=== PATIENT | male | born 1940 | race Caucasian/White ===

== ENCOUNTER 2018-10-19 11:52 | Emergency (ER) | payer OTHER ==
[~2018-10-19] VITALS: Ht 172.7 cm; Wt 74.8 kg
[~2018-10-19 11:52] MED LIST: ACETAMINOPHEN325 M1 PO; ALBUTEROL2.5 MG/31 INH; ASPIR 8181 MG PO; ASPIRIN EC81 M1 PO; ASPIRIN81 M2 PO; AVELOX400 MG PO; BACTRIM DS TAB1 EACH PO; BENAZEPRIL HCL40 MG PO; BISACODYL SUPP10 MG RECTAL; CHILDREN'S100 MG/58 PO; DEEP SEA NASAL44 M1 NS; DEPAKENE250 MG PO; DEPAKOTE500 MG; DEPAKOTE500 MG PO; DILTIAZEM ER120 M1; DIPHENHIST25 MG PO; DIPHENOXYLATE/A1 TA1 PO; DOCUSATE SODIU100 MG PO; FLOMAX0.4 MG PO; HYDROCHLOROTHIA25 M1 PO; HYDROCODON-ACE1 EAC7 PO; LEXAPRO 10 MG T10 M2 PO; LISINOPRIL40 MG PO; LORAZEPAM 2MG TA2 M1 PO; NORCO 5-325 TA1 EACH PO; NUEDEXTA 20-101 EACH PO; PATADAY2.5 ML OP; PATANOL; PROTONIX40 M1 PO; QUETIAPINE FUM100 MG PO; RANITIDINE 150150 M1 PO; SALINE MIST44 ML NASAL; SEROQUEL 50 MG50 MG PO; SEROQUEL XR150 MG; SEROQUEL200 MG PO; TAMSULOSIN HCL0.4 M1 PO; UNICOMPLEX M TA1 TA1 PO; VALPROIC A250 MG/51 PO; XANAX1 MG PO; XARELTO20 MG PO; ZANTAC 150MG T150 MG PO
[2018-10-19 14:07] VITALS: BP 130/74
== END 2018-10-19 13:55 | disposition home or self-care (01) ==
LOC: ER 11:52
DX: S60.222A Contusion of left hand, initial encounter (principal); F20.9 Schizophrenia, unspecified; I10 Essential (primary) hypertension; K21.9 Gastro-esophageal reflux disease without esophagitis; X58.XXXA Exposure to other specified factors, initial encounter; Y92.89 Other specified places as the place of occurrence of the external cause; Y93.89 Activity, other specified; Y99.8 Other external cause status

== ENCOUNTER 2019-11-07 19:57 | Inpatient (IN) | payer OTHER ==
[~2019-11-07] VITALS: Ht 172.7 cm; Wt 84.6 kg
[2019-11-07 20:00] VITALS: BP 136/70
[2019-11-07 20:20] LABS: ABSOLUTE NEUTROPHILS 12.4 thou/uL (1.4-8.2); BASOPHILS 0.1 % (0.0-2.0); EOSINOPHILS 0.7 % (0.0-3.0); HEMATOCRIT 44.4 % (42.0-52.0); HEMOGLOBIN 14.7 gm/dL (14.0-18.0); LYMPHOCYTES 12.2 % (24.0-44.0); MCH 30.5 pg (26.0-34.0); MCHC 33.2 g/dL (28.0-37.0); MCV 91.9 fL (80.0-100.0); MONOCYTES 6.9 % (1.0-8.0); PLATELET COUNT 245 thou/uL (150-400); POLYS 80.1 % (36.0-66.0); RBC 4.83 mil/uL (4.50-6.00); RDW 13.8 % (10.5-14.5); WBC 15.5 thou/uL (4.0-11.0)
[2019-11-07 20:36] LABS: ANION GAP 7 mmol/L (7-16); BUN 17 mg/dL (7-18); CALCIUM 8.9 mg/dL (8.5-10.1); CHLORIDE 99 mmol/L (98-107); CO2 29 mmol/L (21-32); CREATININE 0.8 mg/dL (0.7-1.3); GLUCOSE 205 mg/dL (74-106); POTASSIUM 3.8 mmol/L (3.5-5.1); SODIUM 135 mmol/L (136-145)
[2019-11-07 20:44] LABS: ALBUMIN 3.3 g/dL (3.4-5.0); SGOT 21 U/L (15-37); SGPT 17 U/L (30-65); TOTAL BILIRUBIN 0.3 mg/dL (0.2-1.0); TOTAL PROTEIN 7.6 g/dL (6.4-8.2); TROPONIN-I <0.06 ng/mL (<0.06)
--- NOTE | 2019-11-07 20:55 | NUR ---
PA called at this time to get consent for patient treamtment
--- NOTE | 2019-11-07 21:27 | NUR ---
Consent received from Calvin Rodriguez from PA's office
[2019-11-07] MEDS ORDERED: QUETIAPINE FUMA50 MG PO (22:06)
[2019-11-07] MEDS ORDERED: VALPROIC A250 MG/52 PO (22:06)
[2019-11-07] MEDS ORDERED: ALBUTEROL2.5 MG/31 INH (22:19)
[2019-11-07] MEDS ORDERED: ALPRAZOLAM ER1 MG PO (22:19)
--- NOTE | 2019-11-07 23:55 | NUR ---
Unable to hang vancomycin due to lack of IV pumps in department. Will administer as soon as possible.
[2019-11-08] VITALS (8 sets, daily range): BP systolic 147–170; BP diastolic 81–97
[2019-11-08] MEDS ORDERED: FLOMAX0.4 MG PO (02:21)
[2019-11-08] MEDS ORDERED: DEEP SEA NASAL44 M1 NASAL (02:29)
[2019-11-08] MEDS ORDERED: QUETIAPINE FUM300 MG PO (03:16)
[2019-11-08 03:34] LABS: HEMATOCRIT 41.1 % (42.0-52.0); HEMOGLOBIN 13.5 gm/dL (14.0-18.0); MCH 30.1 pg (26.0-34.0); MCV 91.3 fL (80.0-100.0); RBC 4.5 mil/uL (4.50-6.00); RDW 13.3 % (10.5-14.5); WBC 11.1 thou/uL (4.0-11.0)
[2019-11-08 03:38] LABS: CALCIUM 8.5 mg/dL (8.5-10.1); CREATININE 0.7 mg/dL (0.7-1.3); POTASSIUM 3.3 mmol/L (3.5-5.1)
--- NOTE | 2019-11-08 06:08 | NUR ---
PT ADMITTED AT 00:58 THIS AM TO 355 FROM ER. ALERT BUT NONVERBAL. 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 INCOMPREHENSIBLE NOISES MADE AT TIMES. HRR SR 1AVB WITH BBB ON TELEMETRY. 2LNC ON . NONPRODUCTIVE COUGH NOTED. REVIEWED PT'S HOME MEDS WITH GABRIEL PADRON CLOTH STOCK SORTER OF THE RESIDENTIAL. NEAL NOTIFIED ALL MEDS WERE REVIEWED AND READY FOR HER TO LOOK AT AND INITIATE. BP MODERATELY ELEVATED. IV ABX STARTED ORDERED. CONSULT FOR ID CALLED TO ANSWERING SERVICE.
--- NOTE | 2019-11-08 07:45 | EKG ---
[facility] [place] [address] ELECTROCARDIOGRAM REPORT Name: FEROZ RUSSELL Room #: 355- ADM IN M.R.#: [id number] Admission: 11/08/19 Attend Phys: Moy Guadarrama MD Discharge: Date of : 42 Report #: [id number] THIS REPORT FOR: cc: MELISSA HOLLINS MD Physician not on staff Tre Piper MD [facility] THIS REPORT FOR: //name// [facility] ED Test Date: 2019-11-07 Test Time: 20:10:37 Pat Name: FEROZ RUSSELL Department: Room: [facility] Gender: M Hand Model: shoaib : 1940 Requested By: Eduarda Mckay Order Number: [id number] MD: Tre Piper Measurements Intervals [place] Rate: 110 P: 64 DE: 172 QRS: 1 QRSD: 146 T: -29 QT: 361 QTc: 489 Interpretive Statements Sinus tachycardia Right bundle branch block Compared to ECG 02/13/2013 16:55:15 Right bundle-branch block now present Left-axis deviation no longer present Electronically Signed On 11-08-2019 7:45:20 CDT by Tre Piper [email or web address] <ELECTRONICALLY SIGNED> By: Tre Piper MD, [facility] 11/08/19 0745 09 09 Tre Piper MD, [facility] /EPI
--- NOTE | 2019-11-08 16:12 | NUR ---
Case opened to follow for dc planning. Pt is currently in enhanced iso for covid r/o, first test is negative. Pt is residential resident at [facility] and requires assist with all of his adl's. He is normally up to a w/c. The pt has a hx of schizophrenia and severe mental disability. His legal guardian is the [facility] PA's office. They were contacted by the ER for consent to treat. Policy Loan Calculator left message today with the pt's case mnvy Chappell to confirm his dc plan is to return to [place]. Policy Loan Calculator also spoke with their Director of health Services at [facility], Dasha [phone]. She is faxing a copy of the pt's legal guardianship document for the chart. Lary Muñoz is the gp nursing home assistant administrator and she can arrange for transport and readmission to the [place] home [place]. They will need a copy of his dc instructions and meds faxed to [phone] and [facility]. They would like a copy of his chart sent with him. The PA's office will need a copy of his dc summary and inst faxed as well. Their career development manager for care is Aaliyah at [phone] for any nursing concerns or questions. Will follow.
--- NOTE | 2019-11-08 18:10 | NUR ---
ASSUMED CARE APPROX 0700. PT NONVERBAL, BUT WILL FOLLOW COMMAND. ASSESSMENT CHARTED AND VSS. PT AFEBRILE THIS SHIFT. COVID RESULTS NEGATIVE. DR. COBOS NOTIFIED AND ADVISED TO KEEP IN ISOLATION. PT TOLERATING CURRENT DIET W/ NO ISSUES WITH SWALLOWING. SR ON THE TELE MONITOR. FACT CHECKER UPDATED ON PT STATUS.
[2019-11-09 00:25] VITALS: BP 126/79
[2019-11-09 04:49] VITALS: BP 144/83
[2019-11-09 06:18] LABS: HEMATOCRIT 40.9 % (42.0-52.0); HEMOGLOBIN 13.8 gm/dL (14.0-18.0); MCH 30.8 pg (26.0-34.0); MCHC 33.7 g/dL (28.0-37.0); MCV 91.4 fL (80.0-100.0); PLATELET COUNT 233 thou/uL (150-400); RBC 4.47 mil/uL (4.50-6.00); RDW 13.5 % (10.5-14.5); WBC 14.9 thou/uL (4.0-11.0)
[2019-11-09 07:00] LABS: ALBUMIN 2.5 g/dL (3.4-5.0); CALCIUM 7.9 mg/dL (8.5-10.1); CREATININE 0.7 mg/dL (0.7-1.3); TOTAL BILIRUBIN 0.5 mg/dL (0.2-1.0); TOTAL PROTEIN 6.1 g/dL (6.4-8.2)
[2019-11-09 07:02] LABS: POTASSIUM 2.7 mmol/L (3.5-5.1)
--- NOTE | 2019-11-09 07:50 | NUR ---
PT ALERT X SELF ONLY. HE WILL FOLLOW SIMPLE COMMANDS AT TIMES. HE CAN BE COMBATIVE WITH CARES. PT INC OF LIQUIDS LIGHT BROWN STOOL IN LARGE AMONUTS AT AROUND 2000 PM. PT ALSO VOMITED LIGHT YELLOW ANDINO SPUTUM IN LG AMTS. DR GRIS COBOS WAS HERE AT AROUND 2000. HE ASSESSED PT. ABDOMEN ROUND, DISTENDED, AND SLIGHTLY FIRM. KUB DONE. + ILEUS + SBO. BOWEL SOUNDS NEGATIVE. REPORTED TO DR COBOS TX AND QRS WIDENING. EKG DONE. NOTIFIED NEAL MCCAIN OF RESULTS OF EKG AND KUB. PT MADE NPO. ATTEMPTED TO PLACE NG BUT PT BEGAN TO BLEED FROM R NARE IN MODERATED AMTS. PT COMBATIVE AT TIME ALSO. RESTRAINTS WERE APPLIED AT 2210 BREIFLY TO ATTEMPT NG PLACEMENT. CONSENT WAS GIVEN PER PT'S JOAN PARRA. NEAL MCCAIN WAS NOTIFIED STAFF WERE UNABLE TO PLACE NG DUE TO BLEEDING . CONTINUED TO MONITOR PT ORDERED. PROTONIX IV STARTED ORDERED. LATER PT HAD MORE EMESIS. NEAL MCCAIN TAPE CONTROLLED MACHINE STITCHER CAME UP TO FLOOR AND PLACED LIDOCAINE GEL IN LEFT NARE AND ATTEMPTED TO PLACE NG AGAIN. PT BEGAN TO BLEED AGAIN. HR 120'S. LATER IN AM PT HAD LARGE AMT OF BLOOD TINGED EMESIS AND LUNGS BECAME MORE COARSE. SATS 93%. NOTIFIED NEAL MCCAIN TAPE CONTROLLED MACHINE STITCHER WHILE SHE WAS HERE ON THE UNIT. GI AND SURGERY CONSULTED ORDERED RE ILEUS / SBO. KUB AND CXRAY PENDING FOR THIS AM. CRITICAL POTASSIUM CALLED BY LAB TO NORMA SCHRADER RN AT CHANGE OF SHIFT. HE STATED HE WAS NOTIFIYING HER DR. PT PROGRESSING POORLY TOWARDS D/C GOALS. TURNED PT SLIGHTLY SIDE TO SIDE WITH HOB UP. NO SKIN BREAKDOWN NOTED.
[2019-11-09 07:53] VITALS: BP 118/75
[2019-11-09 09:27] LABS: ABSOLUTE NEUTROPHILS 11.9 thou/uL (1.4-8.2); PLATELET ESTIMATE NORMAL
--- NOTE | 2019-11-09 10:37 | NUR ---
report from bedside nurse, pt having emesis and has sbo. will cont following as needed for dc needs. hung from [facility] long-term, no prior home o2 and hung is requiring oxygen per nasal cannula. will cont following as needed for dc needs.
[2019-11-09 16:20] VITALS: BP 130/66
--- NOTE | 2019-11-09 17:35 | NUR ---
PATIENT HAS RESTED IN BED THROUGH THE DAY. HE IS ALERT ORIENTED TO SELF. HE HAS BEEN COOPERATIVE WITH CARES. NO NAUSEA/VOMITING TODAY. RESPIRATIONS ARE NON LABORED. INCONT ON BOWEL AND BLADDER. WILL CONT WITH PLAN OF CARE.
[2019-11-09 20:45] VITALS: BP 153/70
--- NOTE | 2019-11-09 23:14 | NUR ---
PT ALERT . COMBATIVE WITH NS WHEN TRYING TO GET ORAL TEMP. REAPPROACHED PT LATER AND OBTAINED A AXILLARY TEMP. PT MORE COOPERATIVE. IV FLUIDS INFUSING ORDERED. NO BLEEDING NOTED TONIGHT. ABDOMEN IS LESS DISTENDED BUT STILLIS ROUND AND SLIGHTLY DISTENDED. NO EMESIS NOTED. NO S/S DISTRESS PRESENTLY. WILL SEND PT TO CT SCAN ORDERED.
[2019-11-10] VITALS (8 sets, daily range): BP systolic 137–161; BP diastolic 69–88
--- NOTE | 2019-11-10 02:30 | NUR ---
PT TRANSFER FROM [facility] COVID 19 TEST NEGATIVE. ASPIRATION PNEUMONIA DIAGNOSIS. LUNGS ARE COARSE TO RHONCHI NOTED. ON 2 LITERS NASAL CANULA. SUCTION AT BEDSIDE IF NEEDED. SIDE RAILS PADED FOR SEZIURE PRECAUTION. 2 PLUS PEDAL EDEMA NOTED. NO SKIN ISSUES NOTED. VITALS STABLE WITH TRANSFER. NPO AND NOTED ON THE DOOR OF ROOM TO HAVE A CAT SCAN OF ABDOMEN IN AM. WILL CONTINUE TO ASSESS AND MONITOR. BOWEL SOUNDS ABDSENT ABDOMEN IS FIRM AND DISTENDED.
--- NOTE | 2019-11-10 02:57 | NUR ---
PT TRANSFERRED TO CCU RM 207 IN STABLE CONDITION. REPORTED TO RECEIVING NS PT IS NPO DUE TO SBO/ILEUS. GI AND SURGERY ON CASE. CT ABD IN AM. REPORTED LG LIQUID STOOLS YESTERDAY WITH LG AMOUTS EMESIS, ABD DISTENTION AND FAILED ATTEMPT X2 FOR NG TUBE PLACEMENT DUE TO BLEEDING. PT TRANSFERRED WITH NO CURRENT S/S BLEEDING. ABDOMEN LESS DISTENDED TONIGHT. NO EMESIS OR DIARRHEA. VSS LOW AFEBRILE SATS WNL UPON TRANSFER.
[2019-11-10 05:57] LABS: HEMATOCRIT 37.8 % (42.0-52.0); HEMOGLOBIN 12.8 gm/dL (14.0-18.0); MCHC 33.8 g/dL (28.0-37.0); MCV 91.8 fL (80.0-100.0); PLATELET COUNT 206 thou/uL (150-400); RBC 4.12 mil/uL (4.50-6.00); RDW 13.6 % (10.5-14.5); WBC 8.1 thou/uL (4.0-11.0)
[2019-11-10 06:30] LABS: ALBUMIN 2.3 g/dL (3.4-5.0); CALCIUM 7.9 mg/dL (8.5-10.1); CREATININE 0.7 mg/dL (0.7-1.3); POTASSIUM 3.7 mmol/L (3.5-5.1); TOTAL BILIRUBIN 0.7 mg/dL (0.2-1.0); TOTAL PROTEIN 5.7 g/dL (6.4-8.2)
[2019-11-10 10:15] LABS: ABSOLUTE NEUTROPHILS 5.9 thou/uL (1.4-8.2)
--- NOTE | 2019-11-10 16:27 | NUR ---
PT CARE ASSUMED AT 0700. ASSESSMENTS CHARTED. MEDICATION CHARTED. PT IS NONVERBAL. BM 11/09; SOFT/LIQUID; MODERATE. PT IS NPO. CT ABDOMEN PERFORMED. PT DID NOT DEMONSTRATE ANY MPULSIVE BEHAVIOR. PT GRINDS TEETH LOUDLY AT TIMES.
[2019-11-11 04:00] VITALS: BP 160/80
--- NOTE | 2019-11-11 05:16 | NUR ---
ASSUMED PT CARE AT 1900. PT IS ALERT BUT NON-VERBAL. PT IS LAYING IN BED RESTING COMFORTABLE. FALL PRECAUTION IN PLACE. CALL LIGHT WITHIN REACH. ASSESSMENT COMPLETED AND DOCUMENTED. SCHEDULED MEDS ADMINISTERED TO PT. NO SIGN OF DISTRESS NOTED IN PT. CONTINUE TO MONITOR PT. NO FURTHER NEEDS AT THIS TIME.
[2019-11-11 07:40] VITALS: BP 146/70
--- NOTE | 2019-11-11 10:45 | NUR ---
ASSUMED PT CARE THIS AM, ASSESSED, VSS, PT RESTING IN BED, ALL SMILES, AT 100% OF BREAKFAST TRAY, HELPS REPOSITION IN BED HIMSELF, SHOWED NO SIGNS OF PAIN, WILL MONITOR
--- NOTE | 2019-11-11 14:01 | NUR ---
PT HAD LARGE, LIQUID BM, WASHED UP, LINENS CHANGED, PT AGITATED AND SWATTED AT NURSING STAFF WHILE CLEANING. PT RESTING IN BED NOW.
[2019-11-11 17:00] VITALS: BP 155/70
[2019-11-11 20:20] VITALS: BP 160/90
[2019-11-12 04:30] VITALS: BP 166/76
--- NOTE | 2019-11-12 04:31 | NUR ---
ASSUMED PT CARE AT 1900. PT IS NON-VERBAL, LAYING IN BED, RESTING. FALL PRECAUTION IN PLACE. PT BECAME AGITATED AND COMBATIVE HE WAS BEEN CLEANED UP. HE BECAME AGRESSIVE WITH THE PSYCHOLOGY LECTURER. ASSESSMENT COMPLETED AND DOCUMENTED. NO SIGN OF DISTRESS NOTED. SCHEDULED MEDS ADMINISTERED TO PT. CONTINUE TO MONITOR PT. NO NEEDS AT THIS TIME
[2019-11-12 07:55] VITALS: BP 151/109
[2019-11-12 13:20] VITALS: BP 156/70
[2019-11-12 15:14] VITALS: BP 145/66
--- NOTE | 2019-11-12 18:03 | NUR ---
PT CARE ASSUMED APPROX 0700. ASSESSMENT CHARTED. PT DOES NOT APPEAR TO BE IN PAIN OR DISTRESS. NO N/V. PT IS HITTING STAFF WHEN CARES AND ADLS ARE BEEN COMPLETED. NURSING WILL CONTINUE TO EXPLAIN ALL CARES PRIOR TO DELIVERING THEM AND CLUSTER CARES WELL. PT REFUSING TURNS WITH COMBATIVENESS. APPETITE IS GOOD. COMPLIANT WITH MEDS. NO DISTRESS NOTED.
[2019-11-12 20:48] VITALS: BP 169/69
[2019-11-13] VITALS (8 sets, daily range): BP systolic 157–178; BP diastolic 67–89
--- NOTE | 2019-11-13 07:22 | EKG ---
[facility] [place] [address] ELECTROCARDIOGRAM REPORT Name: FEROZ RUSSELL Room #: 207- ADM IN M.R.#: [id number] Admission: 11/08/19 Attend Phys: Moy Guadarrama MD Discharge: Date of : 42 Report #: [id number] THIS REPORT FOR: cc: MELISSA HOLLINS MD Physician not on staff Tre Piper MD [facility] ~ THIS REPORT FOR: //name// [facility] Test Date: 2019-11-08 Test Time: 21:09:39 Pat Name: FEROZ RUSSELL Department: Room: [facility] Gender: M Fur Clipper: [id number] : 1940 Requested By: Moy Guadarrama Order Number: [id number] MD: Tre Piper Measurements Intervals [place] Rate: 101 P: 58 [place]: 200 QRS: -42 QRSD: 141 T: 35 QT: 358 QTc: 465 Interpretive Statements Sinus tachycardia RBBB and LAFB Compared to ECG 11/07/2019 20:10:37 Left anterior fascicular block now present Electronically Signed On 11-13-2019 7:21:47 CDT by Tre Piper [email or web address] <ELECTRONICALLY SIGNED> By: Tre Piper MD, [facility] 11/13/19 0721 08 08 Tre Piper MD, [facility] /EPI
--- NOTE | 2019-11-13 08:22 | NUR ---
PATIENT TRIES TO GRAB THE STAFF NURSES WHEN CHANGING HIM.ALERT,CONFUSED,REFUSED REPOSITIONING AT TIMES.MONITOR SHOWS SB.POC CONTINUED.
--- NOTE | 2019-11-13 16:52 | NUR ---
Spoke with Dasha at [facility] grp home to alert of tenative dc in am.
--- NOTE | 2019-11-13 18:25 | NUR ---
PT CARE ASSUMED AT 0700. ASSESSMENT CHARTED. MEDICATION CHARTED. PT HAD INCONTINENCE X 2. PT GROIN REDDENING; DR RUCKER NOTIFIED; BARRIER CREAM APPLIED. PILLS TO BE CRUSHED WITH PUDDING. PT GRINDS TEETH LOUDLY WHEN STRESSED.
--- NOTE | 2019-11-14 04:47 | NUR ---
RECIEVED CARE OF THIS PATIENT AT 1900. PATIENT ALERT AND ORIENTED TO SELF. WILL OBEY SIMPLE COMMANDS. HAS TWO TOYS IN BED WITH HIM THAT KEEP HIM CALM. PATIENT HAS BEEN CALM ALL NIGHT. DOES NOT APPEAR TO BE IN ANY PAIN. HAS SLEPT OFF AND ON DURING NIGHT. HAS YVAN SCD'S ON.
[2019-11-14 06:19] VITALS: BP 156/74
[2019-11-14 08:30] VITALS: BP 163/80
[2019-11-14 08:31] VITALS: BP 163/80
[2019-11-14] MEDS ORDERED: QUETIAPINE FUMA50 MG PO (10:30)
[2019-11-14] MEDS ORDERED: AUGMENTIN 875-1 EACH PO ×2 (10:30→15:15)
[2019-11-14] MEDS ORDERED: MIRALAX119 GM PO ×2 (10:33→15:15)
[2019-11-14 11:45] VITALS: BP 168/84
[2019-11-14 12:15] VITALS: BP 168/84
[2019-11-14] MEDS ORDERED: [UNRECOGNIZED DRUG - OTHER] (15:22)
[2019-11-14] MEDS ORDERED: [UNRECOGNIZED DRUG - OTHER] (15:22)
--- NOTE | 2019-11-14 15:59 | NUR ---
Patient to dc to [facility] today. Sp with GAURAV Gillette at PA office and rec consent for discharge. Faxed dc orders to PA office and rec paper confirmation of receipt. Faxed orders to [facility] and sp with Dwight. Needed to add PRN medications to dc orders. Faxed and [facility] reviewed and agreeable for dc. [facility] sent transport their own wc van. Romeo Figueroa sp with [facility] earlier today. No further dc needs.
--- NOTE | 2019-11-14 16:26 | NUR ---
PT CARE ASSUMED AT 0700. ASSESSMENT CHARTED. MEDICATION CHARTED. BOWEL AND BLADDER INCONTINENCE X2; LOOSE, PASTY BROWN AND YELLOW. AMADOR AREA IS RED WITH WHITE PATCHES; TREATED WITH NYSTATIN POWDER. PT GRINDS TEETH SEVERELY. PT IS DISCHARGED BACK TO PT'S [facility]. TELEMETRY D/C'D. IV D/C'D.
== END 2019-11-14 16:10 | disposition home or self-care (01) | DRG 177 ==
LOC: ER 19:57 → EROBS 11-08 00:04 → 3W 11-08 00:04 → 2N 11-08 00:04 → 3W 11-08 00:40 → 2N 11-10 02:30
PROVIDERS: Nurse Practitioner Family; Specialist; Student in an Organized Health Care Education/Training Program; ADMIT Internal Medicine; ATTEND Internal Medicine
DX: J69.0 Pneumonitis due to inhalation of food and vomit (principal); J96.01 Acute respiratory failure with hypoxia; K92.0 Hematemesis; K56.7 Ileus, unspecified; F20.9 Schizophrenia, unspecified; I10 Essential (primary) hypertension; K21.9 Gastro-esophageal reflux disease without esophagitis; N40.0 Benign prostatic hyperplasia without lower urinary tract symptoms; Z20.828 Contact with and (suspected) exposure to other viral communicable diseases; K59.00 Constipation, unspecified; Y95 Nosocomial condition; G40.409 Other generalized epilepsy and epileptic syndromes, not intractable, without status epilepticus; F79 Unspecified intellectual disabilities
CPT/HCPCS: 10081; 10879

== ENCOUNTER 2020-02-15 14:59 | Inpatient (IN) | payer OTHER ==
[~2020-02-15] VITALS: Ht 170.2 cm; Wt 81.2 kg
[~2020-02-15 14:59] MED LIST changes: +ALPRAZOLAM ER1 MG PO; +AUGMENTIN 875-1 EACH PO; +DEEP SEA NASAL44 M1 NASAL; +MIRALAX119 GM PO; +QUETIAPINE FUM300 MG PO; +QUETIAPINE FUMA50 MG PO; +VALPROIC A250 MG/52 PO; +[UNRECOGNIZED DRUG - OTHER]; +[UNRECOGNIZED DRUG - OTHER]
[2020-02-15 15:01] VITALS: BP 126/72
--- NOTE | 2020-02-15 16:50 | NUR ---
GHANSHYAM AT THE PT'S INTERMEDIATE WOULD LIKE TO BE UPDATED ON THE PT'S STATUS OR WHEN A DISCHARGE/ADMISSION DECISION IS MADE. PT PROVIDED IS A CELL PHONE AND CAN BE CALLED 24 HOURS/DAY. GHANSHYAM [phone]
[2020-02-15 18:57] LABS: URINE BILIRUBIN NEGATIVE (Negative); URINE BLOOD 2+ (Negative); URINE CLARITY CLEAR; URINE COLOR YELLOW; URINE GLUCOSE-RANDOM* NEGATIVE (Negative); URINE KETONES NEGATIVE (Negative); URINE NITRITE-REFLEX NEGATIVE (Negative); URINE PROTEIN (DIPSTICK) 2+ (Negative); URINE SPECIFIC GRAVITY >= 1.030 (1.005-1.035)
[2020-02-15 18:58] LABS: HEMATOCRIT 33.4 % (42.0-52.0); HEMOGLOBIN 10.8 gm/dL (14.0-18.0); MCH 26.3 pg (26.0-34.0); MCHC 32.3 g/dL (28.0-37.0); MCV 81.4 fL (80.0-100.0); PLATELET COUNT 265 thou/uL (150-400); RBC 4.11 mil/uL (4.50-6.00); RDW 14.1 % (10.5-14.5); WBC 6.2 thou/uL (4.0-11.0)
[2020-02-15 19:03] LABS: URINE LEUKOCYTES-REFLEX 1+ (Negative)
[2020-02-15 19:07] LABS: ANION GAP 11 mmol/L (7-16); BUN 20 mg/dL (7-18); CALCIUM 8.8 mg/dL (8.5-10.1); CHLORIDE 104 mmol/L (98-107); CO2 27 mmol/L (21-32); CREATININE 0.6 mg/dL (0.7-1.3); GLUCOSE 112 mg/dL (74-106); POTASSIUM 4.1 mmol/L (3.5-5.1); SODIUM 142 mmol/L (136-145)
[2020-02-15 19:13] LABS: ALBUMIN 3.3 g/dL (3.4-5.0); DIRECT BILIRUBIN < 0.1 mg/dL (<0.1-0.2); SGOT 20 U/L (15-37); SGPT 12 U/L (30-65); TOTAL BILIRUBIN 0.3 mg/dL (0.2-1.0); TOTAL PROTEIN 7.4 g/dL (6.4-8.2)
[2020-02-15 19:15] LABS: MUCUS 4-6 Moderate strn/LPF (None Seen)
[2020-02-15 19:16] LABS: CASTS None Seen /LPF (None Seen); CRYSTALS None Seen /LPF (None Seen); SQUAMOUS 0-3 Few /LPF (0-3); URINE RBC 3-10 Few /HPF (0-2); URINE WBC-REFLEX >25 Many /HPF (0-5)
[2020-02-15 19:35] LABS: ABSOLUTE NEUTROPHILS 2.7 thou/uL (1.4-8.2)
[2020-02-15 20:30] VITALS: BP 153/66
[2020-02-16 06:04] LABS: CALCIUM 7.9 mg/dL (8.5-10.1); CREATININE 0.6 mg/dL (0.7-1.3); POTASSIUM 3.9 mmol/L (3.5-5.1)
[2020-02-16 06:06] LABS: HEMATOCRIT 29.9 % (42.0-52.0); HEMOGLOBIN 9.7 gm/dL (14.0-18.0); MCH 26.3 pg (26.0-34.0); MCHC 32.5 g/dL (28.0-37.0); RBC 3.69 mil/uL (4.50-6.00); RDW 13.7 % (10.5-14.5); WBC 5.2 thou/uL (4.0-11.0)
[2020-02-16 17:26] VITALS: BP 111/54
--- NOTE | 2020-02-16 19:28 | NUR ---
Dario from pharmacy reports that tamsulosin can be opened and put in applesauce or pudding.
[2020-02-16 19:56] VITALS: BP 129/67
[2020-02-16 20:35] VITALS: BP 125/60
[2020-02-17 00:05] VITALS: BP 110/55; BP 121/56
--- NOTE | 2020-02-17 03:07 | NUR ---
ADMISSION NOTED: PT ALERT TO SELF CALM WHEN ASSESSING PT, BUT PT BECAME AGGRESSIVE AND PUNCH NURSE -CHEMISTRY LAB INSTRUCTOR IN RIGHT ARM, WHEN TRYING TO OBTAIN A MRSA SWAB AND STRIAGHTCATH FOR URINE. PT ABLE TO TAKE PO MEDICATION AND FELL ASLEEP. CALLED GUARDIN TO OBTAIN CONSENT FOR CONVALSENT PLASMA AND GIVEN AND TOLERATED WELL, WILL CONINTUE WITHG CURRENT PLAN OF CARE AND REPORT CHANGES.
[2020-02-17 05:39] LABS: HEMATOCRIT 27.9 % (42.0-52.0); MCH 25.9 pg (26.0-34.0); MCHC 32.3 g/dL (28.0-37.0); MCV 80.1 fL (80.0-100.0); PLATELET COUNT 180 thou/uL (150-400); RBC 3.49 mil/uL (4.50-6.00); RDW 13.6 % (10.5-14.5); WBC 2.3 thou/uL (4.0-11.0)
[2020-02-17 05:57] VITALS: BP 137/71
[2020-02-17 06:13] LABS: INR 1.2; PROTIME 12.7 Seconds (9.3-11.4)
[2020-02-17 06:21] LABS: ALBUMIN 2.5 g/dL (3.4-5.0); CALCIUM 7.7 mg/dL (8.5-10.1); CREATININE 0.6 mg/dL (0.7-1.3); POTASSIUM 3.7 mmol/L (3.5-5.1); TOTAL BILIRUBIN 0.5 mg/dL (0.2-1.0); TOTAL PROTEIN 5.8 g/dL (6.4-8.2)
--- NOTE | 2020-02-17 10:20 | NUR ---
discussed with bedside nurse during prime time , [facility], has + roommates. he is + for covid and started remdiseivire. no anticipated weekend dc. has Public admin.
[2020-02-17 11:41] VITALS: BP 135/65
[2020-02-17 13:36] LABS: ABSOLUTE NEUTROPHILS 0.9 thou/uL (1.4-8.2); ATYPICAL LYMPHS 2 %; LARGE PLATELETS FEW; OVALOCYTES OCCASIONAL
[2020-02-17 13:37] LABS: POIKILOCYTOSIS SLIGHT
[2020-02-17 16:12] VITALS: BP 147/56
[2020-02-17 20:25] VITALS: BP 145/79
--- NOTE | 2020-02-18 03:22 | NUR ---
Patient making slow progress towards outcome goals. Continues to require 2L/NC to maintain optimal oxygenaton. Combative with cares at times, managed to snap IV tubing in 2 and IV pole landed on the floor. High fall risks, fall precautions in place. Incontinent of urine. Swallowing meds and thin liquids with no difficulty.
[2020-02-18 03:24] VITALS: BP 142/60
[2020-02-18 09:10] VITALS: BP 135/62
[2020-02-18 11:30] VITALS: BP 122/65
[2020-02-18 15:20] VITALS: BP 118/70
--- NOTE | 2020-02-18 18:37 | NUR ---
ASSUMED CARE OF PT AT 0700. PT CONFUSED, MAKES INCOMPREHENSIBLE SOUNDS, GRINDS TEETH. OTHERWISE COOPERATIVE. GOOD APEPTITE. INCONTINENT. IV ANTIVIRALS AND ANBIOTICS INFUSING PER ORDER. NO OTHER CHANGES TO REPORT.
[2020-02-18 19:24] VITALS: BP 135/66
[2020-02-19 03:32] VITALS: BP 132/52
--- NOTE | 2020-02-19 03:35 | NUR ---
Progressing well towards outcome goals. Vital signs and rhythm stable. High fall risks, fall precautions in place. Oxygenation optimalon room air. Appetite good. Fluid intake good. Incontinent.
[2020-02-19 06:07] VITALS: BP 157/78
--- NOTE | 2020-02-19 15:35 | NUR ---
INITIAL ASSESSMENT: RANDI reviewed chart and spoke with nursing and attending physician. Pt was admitted from [facility] Det[facility] due to UTI. Pt placed in Enhanced Isolation due to having positive COVID test. Pt is afebrile and not requiring O2. Pt is IV abx. Pt had convalescent plasma and is completing course of Remdesivir. Pt with hx of schizophrenia and is a mai of the [facility] through the [facility] Public [employer] Office Instructor's Office. RANDI contacted Vinh Lux with the [facility] PA office to provide update. At this time, plan is for pt to return to the nursing home. RANDI left voice messages for Lary Muñoz-general manager [employer] data [employer] ([phone]) and Renetta-nursing home nurse )[phone]). SW requested therapy evals. RANDI is following to assist as needed with discharge planning.
--- NOTE | 2020-02-19 19:11 | NUR ---
ASSUMED PATIENT CARE AT 0700. ALERT. NONE VERBLE. GOOD APPETITE. INCONTINENCE URINE AND BOWEL. SLOWLY TOWQARDS POC GOALS,
[2020-02-19 19:39] VITALS: BP 165/82
[2020-02-20 04:06] VITALS: BP 145/57
--- NOTE | 2020-02-20 05:23 | NUR ---
ASSUMED CARE FROM DAY SHIFT PT ASSESSMENT COMPLETE PO MEDICATION TAKEN , PT RESTED WELL THROUGHOUT HOULRY ROUNDS, WILL CONINTUE WOITH CURRENT PLAN OF CARE.
[2020-02-20 05:52] LABS: ALBUMIN 2.5 g/dL (3.4-5.0); DIRECT BILIRUBIN < 0.1 mg/dL (<0.1-0.2); SGOT 16 U/L (15-37); SGPT 19 U/L (30-65); TOTAL BILIRUBIN 0.2 mg/dL (0.2-1.0); TOTAL PROTEIN 5.7 g/dL (6.4-8.2)
[2020-02-20 07:35] VITALS: BP 177/68
[2020-02-20 11:29] VITALS: BP 156/67
[2020-02-20 15:31] VITALS: BP 154/67
--- NOTE | 2020-02-20 16:10 | NUR ---
RANDI reviewed chart and spoke with nursing and attending physician. Pt remains in Enhanced Isolation due to COVID-19. Pt is afebrile and not requiring O2. Pt is on IV abx and completing course of Remdesivir today. Therapy evals ordered today. [facility] stating [facility] are able to [facility] pt back tomorrow. [facility]: 3 are COVID positive and the other 2 have pending tests. Pt will [facility], or [facility]. Dasha requests HH therapy to be ordered for pt through [facility]. RANDI faxed HH referral and spoke with Devora in intake. RANDI updated Vinh Lux at the [facility] PA office. Discharge orders will need to be faxed to the [facility] pharmacy ([phone]) when available. [facility] staff is able to provide transportation home. RANDI is following to assist as needed with discharge planning.
[2020-02-20 20:20] VITALS: BP 142/59
--- NOTE | 2020-02-21 00:38 | NUR ---
PT IS VERY AGITATED AT THIS TIME. PT IS HITTING AND SCREAMING. PT IS OFF TELE AT THIS TIME. WILL MONITOR PT CLOSELY AND ATTEMPT TO RECONNECT TELE ONCE PT SETTLES DOWN.
[2020-02-21 03:44] VITALS: BP 167/84
[2020-02-21 06:37] LABS: ALBUMIN 2.6 g/dL (3.4-5.0); DIRECT BILIRUBIN < 0.1 mg/dL (<0.1-0.2); SGOT 15 U/L (15-37); SGPT 24 U/L (30-65); TOTAL BILIRUBIN 0.2 mg/dL (0.2-1.0); TOTAL PROTEIN 5.5 g/dL (6.4-8.2)
[2020-02-21 09:25] VITALS: BP 175/68
[2020-02-21 10:46] VITALS: BP 175/68
--- NOTE | 2020-02-21 15:58 | NUR ---
DISCHARGE NOTE: RANDI reviewed chart and spoke with nursing and attending physician. Pt remains in Enhanced Isolation due to COVID-19. Pt is medically stable to discharge back to his senior care today with Himanshu . RANDI spoke with Torrie at the senior care, who states pt will return to his senior care, as all of the other residents have tested positive for COVID. RANDI faxed finalized discharge orders/summary to [facility] and left voice message for Devora, to notify of discharge. RANDI faxed d/c med list to pt's pharmacy. RANDI also faxed to the senior care. The senior care staff is unable to provide transportation home. RANDI arranged stretcher van through [employer] for [phone]. Approved by Director of Case Mgmt. RANDI notified Torrie at [facility] senior care and pt's nurse of transportation time. RANDI faxed d/c orders/summary to the [facility] PA Office. Notified Vinh Lux of pt's discharge. Consent received for discharge. No additional SW needs identified at this time, but is available to assist should needs arise.
[2020-02-21 17:33] VITALS: BP 175/68
--- NOTE | 2020-02-21 17:52 | NUR ---
PATIENT DISCHARGED AT THIS TIME. RESPIRATIONS ARE NON LABORED. PLEASANT WITH CARES.
== END 2020-02-21 17:53 | disposition home health service (06) | DRG 177 ==
LOC: ER 14:59 → 3W 20:00 → EROBS 20:00 → 3W 02-16 20:22
PROVIDERS: Emergency Medicine; Nurse Practitioner Family; Specialist; ADMIT Hospitalist; ATTEND Hospitalist
DX: U07.1 COVID-19 (principal); J12.9 Viral pneumonia, unspecified; J96.90 Respiratory failure, unspecified, unspecified whether with hypoxia or hypercapnia; N39.0 Urinary tract infection, site not specified; I10 Essential (primary) hypertension; K21.9 Gastro-esophageal reflux disease without esophagitis; G40.909 Epilepsy, unspecified, not intractable, without status epilepticus; N40.0 Benign prostatic hyperplasia without lower urinary tract symptoms; K59.00 Constipation, unspecified; F20.9 Schizophrenia, unspecified; F79 Unspecified intellectual disabilities; I34.0 Nonrheumatic mitral (valve) insufficiency; Z79.899 Other long term (current) drug therapy; Z79.82 Long term (current) use of aspirin
CPT/HCPCS: 10879

== ENCOUNTER 2021-03-01 20:29 | Emergency (ER) | payer OTHER ==
--- NOTE | ~2021-03-01 | EMS ---
[place] [address] EMS Patient Care Report Name: GEORGE RUSSELL LINDA Room #: DEP SHARRON Lara#: [id number] Admission: 03/01/21 Attend Phys: Discharge: 03/01/21 Date of : 42 Report #: [id number] THIS REPORT FOR: //name// Report Transmitted: 03/03/2021 10:50 EMS Care Summary [place], [place]/[facility] Incident [id number] @ 03/01/2021 20:07 Incident [address] [place] [address] Patient GEORGE RUSSELL Male, 80 Years 1940 Patient Address [address] [place] [address] Patient History Behavioral/Psychiatric Disorder,Epilepsy,Hypertension (HTN),Hyperlipidemia,Gastro-Esophageal Reflux Disease (GERD),Schizophrenia,Anxiety, Patient Allergies No known allergies, Patient Medications Depakote, Xarelto, Seroquel, Chief Complaint Aspiration of fluid and or food Disposition Transported No Lights/[place] Dispatch Reason Breathing Problem Transported To [facility] Narrative Pt. most likely aspirated on some food debris or thickened water and got all red in the face thus ems was called. Now George is just coughing and looks [address] [address] EMS Patient Care Report Name: GEORGE RUSSELL Room #: DEP ER Jane#: [id number] Admission: 03/01/21 Attend Phys: Discharge: 03/01/21 Date of : 42 Report #: [id number] uncomfortable. No evidence of current shortness of air. He is non verbal. Pt. found in bed with periodic coughing rule out aspiration. moved to cot, secured, loaded, vitals and suctioning attempted but pt. won't allow as we anticipated. transported to [place] without changes, moved to ED bed, care transferred with report given. Initial Vitals @20:23P: 95,BP: 165/96,CO: 3,SpO2: 96, @20:19P: 90,R: 20,BP: 204/96,Pain: 4/10,GCS: 15,CO: 2,SpO2: 95,Revised Trauma: 12, Assessments @20:15MENTAL:Person Oriented,Place Oriented,Time Oriented,Event Oriented,SKIN:HEENT:LUNG SOUNDS:ABDOMEN:PELVIS//GI:EXTREMITIES:PULSE:NEURO:Other, Impression Respiratory disorder Timeline 20:04,Call Received 20:04,Dispatch Notified 20:07,Dispatched 20:08,En Route 20:12,On Scene 20:13,At Patient 20:19,BP: 204/96 M,PULSE: 90,RR: 20 R,SPO2: 95 Ox,ETCO2: ,BG: ,PAIN: 4,GCS: 15, 20:20,Depart Scene 20:23,BP: 165/96 M,PULSE: 95,RR: R,SPO2: 96 Ox,ETCO2: ,BG: ,PAIN: ,GCS: , 20:26,At Destination 20:45,Call Closed Disclaimer v1.1 Copyright 2020 [employer] This EMS Care Summary contains data elements from the applicable legal record (which may be displayed differently). It is designed to provide pertinent information for the following purposes: continuity of care, clinical quality, and state data reporting. The complete legal record is available to ED staff and administrators of the receiving hospital in [employer]'s Patient Tracker. All data is provided "as is."
[2021-03-01] MEDS ORDERED: GAVILAX17 GM PO (21:48)
[2021-03-01] MEDS ORDERED: DULCOLAX10 MG RECTAL (21:48)
[2021-03-01 21:59] LABS: ABSOLUTE NEUTROPHILS 2.5 thou/uL (1.4-8.2); BASOPHILS 0.6 % (0.0-2.0); EOSINOPHILS 4.6 % (0.0-3.0); HEMATOCRIT 42.8 % (42.0-52.0); HEMOGLOBIN 14.3 gm/dL (14.0-18.0); LYMPHOCYTES 34.9 % (24.0-44.0); MCH 30.9 pg (26.0-34.0); MCHC 33.3 g/dL (28.0-37.0); MCV 92.7 fL (80.0-100.0); PLATELET COUNT 221 thou/uL (150-400); POLYS 46.9 % (36.0-66.0); RBC 4.61 mil/uL (4.50-6.00); RDW 13.8 % (10.5-14.5); WBC 5.4 thou/uL (4.0-11.0)
[2021-03-01 22:27] LABS: CALCIUM 8.3 mg/dL (8.5-10.1); CREATININE 0.7 mg/dL (0.7-1.3); POTASSIUM 4.1 mmol/L (3.5-5.1)
[2021-03-01 22:33] LABS: ALBUMIN 3.1 g/dL (3.4-5.0); TOTAL BILIRUBIN 0.3 mg/dL (0.2-1.0); TOTAL PROTEIN 6.5 g/dL (6.4-8.2)
[2021-03-02 03:12] VITALS: BP 147/107
--- NOTE | 2021-03-02 07:37 | EKG ---
[address] [place] [address] ELECTROCARDIOGRAM REPORT Name: FEROZ RUSSELL [id number] Admission: 03/01/21 Attend Phys: Discharge: 03/01/21 Date of : 42 Report #: [id number] [facility] ED Test Date: 2021-03-01 Test Time: 22:41:55 Pat Name: FEROZ RUSSELL Department: Room: Gender: M Private Banker: loraine : 1940 Requested By: Jonathan Acosta Order Number: [id number] MD: Brad Rivera Measurements Intervals [place] Rate: 75 P: 4 [place]: 237 QRS: -35 QRSD: 141 T: 8 QT: 407 QTc: 455 Interpretive Statements Sinus rhythm Prolonged [place] interval Right bundle branch block Probable lateral infarct, old Compared to ECG 11/08/2019 21:09:39 First degree AV block now present Myocardial infarct finding now present Sinus tachycardia no longer present Left anterior fascicular block no longer present Electronically Signed On 03-02-2021 7:37:17 CDT by Brad Rivera [email or web address] <ELECTRONICALLY SIGNED> By: Brad Rivera MD, FACC 03/02/21 0737 40 Brad Rivera MD, FACC /EPI
== END 2021-03-01 23:00 | disposition home or self-care (01) ==
LOC: ER 20:29
PROVIDERS: Emergency Medicine
DX: R05.9 Cough, unspecified (principal); Z20.822 Contact with and (suspected) exposure to COVID-19; F20.9 Schizophrenia, unspecified; I10 Essential (primary) hypertension; K21.9 Gastro-esophageal reflux disease without esophagitis; Z79.82 Long term (current) use of aspirin; Z79.899 Other long term (current) drug therapy

== ENCOUNTER 2021-03-21 14:13 | Emergency (ER) | payer OTHER ==
[~2021-03-21] VITALS: Ht 170.2 cm; Wt 74.8 kg
--- NOTE | ~2021-03-21 | EMS ---
[address] [address] EMS Patient Care Report Name: FEROZ RUSSELL Room #: REG SHARRON Lara#: [id number] Admission: 03/21/21 Attend Phys: Discharge: Date of : 42 Report #: [id number] THIS REPORT FOR: //name// Report Transmitted: 03/21/2021 14:03 EMS Care Summary [place], [place]/[facility] Incident [id number] @ 03/21/2021 13:38 Incident Location [address] [place] [address] Patient FEROZ RUSSELL Male, 80 Years 1940 Patient Address [address] [place] [address] Patient History Behavioral/Psychiatric Disorder,Epilepsy,Hypertension (HTN),Hyperlipidemia,Gastro-Esophageal Reflux Disease (GERD),Schizophrenia,Anxiety, Patient Allergies No known allergies, Patient Medications Xarelto, Depakote, Seroquel, Chief Complaint vomiting Disposition Transported No Lights/[place] [facility] Reason Sick Person Transported To [facility] Narrative pt found seated in his wheel chair. he is alert, nonverbal per norm. he does not follow command but will nod "yes" and "no" to some questions. pt reported [facility] [address] [place] [address] EMS Patient Care Report Name: FEROZ RUSSELL LINDA Room #: REG SHARRON Lara#: [id number] Admission: 03/21/21 Attend Phys: Discharge: Date of : 42 Report #: [id number] to have vomited x 1 last night. today he is to be transported for abnormal VS, pt BP reported to be less than 100/ and pulse ox 90%. no change in LOC. pt to be eval at [facility]. pt does not respond when asked if he hurts or if he is sick. pt assist to stand and pivot to cot, VS, transport w/o change. Initial Vitals @14:01P: 105,R: 20,BP: 155/83,GCS: 11,Glucose: 318,SpO2: 95,Revised Trauma: 11, Assessments @13:54MENTAL:Other,Confused,SKIN:No Abnormalities,HEENT:Head/Face: No Abnormalities,LUNG SOUNDS:General: Vomiting,ABDOMEN:General: Vomiting,PELVIS//GI:EXTREMITIES:PULSE:Radial: 2+ Normal,NEURO:Other, Impression Vomiting Procedures @13:54 ALS Assessment Response: Unchanged @13:58 Stretcher Response: Unchanged Timeline 13:37,Call Received 13:37,Dispatch Notified 13:38,Dispatched 13:40,En Route 13:52,On Scene 13:54,At Patient 13:54,ALS Assessment,Response: Unchanged 13:58,Stretcher,Response: Unchanged 14:01,BP: 155/83 M,PULSE: 105,RR: 20 R,SPO2: 95 Ox,ETCO2: ,B,PAIN: ,GCS: 11, 14:03,Depart Scene 14:08,At Destination 14:29,Call Closed Disclaimer [email or web address] Copyright 2020 [employer] This EMS Care Summary contains data elements from the applicable legal record (which may be displayed differently). It is designed to provide pertinent information for the following purposes: continuity of care, clinical quality, and state data reporting. The complete legal record is available to ED staff and administrators of the receiving hospital in [employer]'s Patient Tracker. All data is provided "as is."
[~2021-03-21 14:13] MED LIST changes: +DULCOLAX10 MG RECTAL; +GAVILAX17 GM PO
[2021-03-21] MEDS ORDERED: FERROUS SULFAT325 M2 PO (15:03)
[2021-03-21] MEDS ORDERED: QUETIAPINE FUMA25 MG PO (15:04)
[2021-03-21] MEDS ORDERED: VITAMIN C500 M2 PO (15:06)
[2021-03-21 15:08] LABS: ABSOLUTE NEUTROPHILS 10.2 thou/uL (1.4-8.2); BASOPHILS 0.3 % (0.0-2.0); EOSINOPHILS 0.1 % (0.0-3.0); HEMOGLOBIN 14.8 gm/dL (14.0-18.0); MCHC 33.7 g/dL (28.0-37.0); MCV 91.9 fL (80.0-100.0); MONOCYTES 11.2 % (1.0-8.0); PLATELET COUNT 226 thou/uL (150-400); POLYS 67.4 % (36.0-66.0); RBC 4.78 mil/uL (4.50-6.00); RDW 13.4 % (10.5-14.5); WBC 15.2 thou/uL (4.0-11.0)
[2021-03-21] MEDS ORDERED: XARELTO20 MG PO (15:08)
[2021-03-21] MEDS ORDERED: SEROQUEL 100 M100 M1 PO (15:10)
[2021-03-21] MEDS ORDERED: MUCINEX600 MG PO (15:11)
[2021-03-21] MEDS ORDERED: CLOTRIMAZOLE-321 GM VAG (15:13)
[2021-03-21 15:15] LABS: CALCIUM 9.1 mg/dL (8.5-10.1); CREATININE 0.9 mg/dL (0.7-1.3); POTASSIUM 3.5 mmol/L (3.5-5.1)
[2021-03-21] MEDS ORDERED: ZPAK PO (16:04)
[2021-03-21 17:50] VITALS: BP 151/85
== END 2021-03-21 17:50 | disposition home or self-care (01) ==
LOC: ER 14:13
PROVIDERS: Nurse Practitioner
DX: R11.2 Nausea with vomiting, unspecified (principal); Z20.822 Contact with and (suspected) exposure to COVID-19; F79 Unspecified intellectual disabilities; Q89.9 Congenital malformation, unspecified; F20.9 Schizophrenia, unspecified; I10 Essential (primary) hypertension; K21.9 Gastro-esophageal reflux disease without esophagitis; Z85.820 Personal history of malignant melanoma of skin; Z86.16 Personal history of COVID-19; Z98.890 Other specified postprocedural states; Z79.82 Long term (current) use of aspirin; Z79.51 Long term (current) use of inhaled steroids; Z79.891 Long term (current) use of opiate analgesic; Z79.1 Long term (current) use of non-steroidal anti-inflammatories (NSAID); Z79.899 Other long term (current) drug therapy